=== PATIENT | male | born 1930 | race Caucasian/White ===

== ENCOUNTER → 2017-06-16 | Outpatient (CLI) | payer MEDICARE, OTHER ==
[~2017-06-16] MED LIST: ALLO100T30 PO; ASPI-496 PO; DUTA0.5C PO; NADO40TA PO; NIAC1000 PO; NIFE20CA PO; PANT40GR PO; REGADENOSON 0.4 MG/5 ML SYRINGE ONE; ROSU20TA PO
== END | disposition home or self-care (01) ==
LOC: CFH 08:14
PROVIDERS: ATTEND Internal Medicine Cardiovascular Disease
DX: I25.9 Chronic ischemic heart disease, unspecified (principal); I25.119 Atherosclerotic heart disease of native coronary artery with unspecified angina pectoris
CPT/HCPCS: 78452; 93017; A9502; J2785

== ENCOUNTER 2017-06-29 09:22 | Inpatient (IN) | payer MEDICARE, OTHER ==
[2017-06-28 11:34] VITALS: BP 119/61
[2017-06-28 11:59] LABS: HEMATOCRIT 47.7 % (39.2-51.8); HEMOGLOBIN 16.3 g/dL (13.7-18.0); WHITE BLOOD COUNT 9.4 x10^3/uL (3.4-10)
[2017-06-28 12:09] LABS: ASPARTATE AMINO TRANSFERASE 31 U/L (15-37); BLOOD UREA NITROGEN 23 mg/dL (7-18)
[~2017-06-29] VITALS: Ht 193 cm; Wt 88.5 kg
[~2017-06-29 09:22] MED LIST changes: -REGADENOSON 0.4 MG/5 ML SYRINGE ONE
[2017-06-29] MEDS ORDERED: BIVALIRUDIN 250 MG ONE (10:26)
[2017-06-29] MEDS ORDERED: VERAPAMIL 2.5 MG/ML, 2ML ONE (10:26)
[2017-06-29] MEDS ORDERED: FENTANYL PF 100 MCG/2ML ONE (10:26)
[2017-06-29] MEDS ORDERED: MIDAZOLAM 1 MG/ML, 5ML ONE (10:26)
[2017-06-29] MEDS ORDERED: LIDOCAINE 2%, 20ML ONE (10:26)
[2017-06-29] MEDS ORDERED: HEPARIN 1,000 UNITS/ML, 10ML ONE (10:26)
[2017-06-29] MEDS ORDERED: PRASUGREL 10 MG TABLET ONE (10:37)
[2017-06-29] MEDS: SODIUM CHLORIDE 0.9% 1,000 ML IV SCH ×2 (11:49→19:49)
[2017-06-29 13:22] VITALS: BP 127/57
[2017-06-29] MEDS ORDERED: SODIUM CHLORIDE 0.9% 1,000 ML IV ONE (14:24)
[2017-06-29] MEDS ORDERED: TICAGRELOR 90 MG TABLET PO ONE (15:00)
[2017-06-29 19:36] VITALS: BP 131/80
[2017-06-29] MEDS: DUTASTERIDE 0.5 MG CAPSULE PO SCH (20:13)
[2017-06-29] MEDS: TEMPLATE NON-FORMULARY MED. (CRESTOR 20 MG) PO SCH (20:13)
[2017-06-29] MEDS: TICAGRELOR 90 MG TABLET PO SCH (20:13)
[2017-06-30 01:20] VITALS: BP 122/53
[2017-06-30] MEDS: SODIUM CHLORIDE 0.9% 1,000 ML IV SCH ×3 (03:49→19:49)
[2017-06-30 05:14] LABS: ASPARTATE AMINO TRANSFERASE 24 U/L (15-37); BLOOD UREA NITROGEN 25 mg/dL (7-18)
[2017-06-30 05:15] LABS: HEMATOCRIT 45.1 % (39.2-51.8); HEMOGLOBIN 15.4 g/dL (13.7-18.0); WHITE BLOOD COUNT 11.6 x10^3/uL (3.4-10)
[2017-06-30] MEDS: ASPIRIN 81 MG TABLET EC PO SCH (06:01)
[2017-06-30 07:28] VITALS: BP 140/73
[2017-06-30] MEDS: PANTOPROZOLE 40MG TABLET PO SCH (07:36)
[2017-06-30] MEDS: niFEDipine ER 30 MG TABLET.ER PO SCH (07:36)
[2017-06-30] MEDS: TICAGRELOR 90 MG TABLET PO SCH ×2 (07:36→20:19)
[2017-06-30] MEDS: ALLOPURINOL 100 MG TABLET PO SCH (07:36)
[2017-06-30] MEDS ORDERED: PHENYLEPHRINE 10 MG/ML ONE (08:11)
[2017-06-30] MEDS ORDERED: NIACIN 500 MG TABLET.ER PO SCH (09:00)
[2017-06-30] MEDS ORDERED: DUTASTERIDE 0.5 MG CAPSULE PO SCH (09:00)
[2017-06-30] MEDS ORDERED: NADOLOL 40 MG PO SCH (09:00)
[2017-06-30 13:30] VITALS: BP 113/59
[2017-06-30 19:57] VITALS: BP 110/66
[2017-06-30] MEDS: TEMPLATE NON-FORMULARY MED. (CRESTOR 20 MG) PO SCH (20:18)
[2017-06-30] MEDS: DUTASTERIDE 0.5 MG CAPSULE PO SCH (20:19)
[2017-07-01 01:33] VITALS: BP 109/53
[2017-07-01] MEDS: SODIUM CHLORIDE 0.9% 1,000 ML IV SCH (03:49)
[2017-07-01 05:22] LABS: BLOOD UREA NITROGEN 22 mg/dL (7-18)
[2017-07-01 07:33] VITALS: BP 114/64
[2017-07-01] MEDS: PANTOPROZOLE 40MG TABLET PO SCH (08:03)
[2017-07-01] MEDS: ASPIRIN 81 MG TABLET EC PO SCH (08:03)
[2017-07-01] MEDS: TICAGRELOR 90 MG TABLET PO SCH (08:03)
[2017-07-01] MEDS: ALLOPURINOL 100 MG TABLET PO SCH (08:03)
[2017-07-01] MEDS: niFEDipine ER 30 MG TABLET.ER PO SCH (08:03)
[2017-07-01] MEDS ORDERED: ALLOPURINOL 100 MG TABLET PO SCH (09:00)
[2017-07-01] MEDS ORDERED: TICA90TA PO (09:56)
== END 2017-07-01 12:20 | disposition home or self-care (01) | DRG 247 ==
LOC: CACL 09:22 → ORIP 11:49 → CACL 11:49 → 5SO 12:03 → DCLOUNGE 07-01 11:49
PROVIDERS: ADMIT Internal Medicine Cardiovascular Disease; ATTEND Internal Medicine Cardiovascular Disease
PROC: 4A023N7 Measurement of Cardiac Sampling and Pressure, Left Heart, Percutaneous Approach (ICD-10-PCS; 2017-06-29)
PROC: B2111ZZ Fluoroscopy of Multiple Coronary Arteries using Low Osmolar Contrast (ICD-10-PCS; 2017-06-29)
PROC: B2151ZZ Fluoroscopy of Left Heart using Low Osmolar Contrast (ICD-10-PCS; 2017-06-29)
PROC: B240ZZ3 Ultrasonography of Single Coronary Artery, Intravascular (ICD-10-PCS; principal; 2017-06-30)
PROC: 027034Z Dilation of Coronary Artery, One Artery with Drug-eluting Intraluminal Device, Percutaneous Approach (ICD-10-PCS; 2017-06-30)
DX: I25.110 Atherosclerotic heart disease of native coronary artery with unstable angina pectoris (principal); I34.0 Nonrheumatic mitral (valve) insufficiency; I10 Essential (primary) hypertension; E78.5 Hyperlipidemia, unspecified; M10.9 Gout, unspecified; Z87.891 Personal history of nicotine dependence; Z82.49 Family history of ischemic heart disease and other diseases of the circulatory system
CPT/HCPCS: 36415; 80048; 80053; 82040; 84425; 84443; 85025; 92978; 92979; 93005; 93454; 93458; 99156; 99157; C1753; C1760; C1769; C1894; C9600; C9601; J0583; J1644; J2250; J3010; J3490; C1725; C1874; C1887; J2370; Q9967

== ENCOUNTER → 2017-11-04 | Outpatient (CLI) | payer MEDICARE, OTHER ==
[~2017-11-04] MED LIST changes: +TICA90TA PO
== END | disposition home or self-care (01) ==
LOC: CVU 15:40
PROVIDERS: ATTEND Internal Medicine
DX: R20.2 Paresthesia of skin (principal); M79.604 Pain in right leg; M79.605 Pain in left leg; I10 Essential (primary) hypertension; I25.10 Atherosclerotic heart disease of native coronary artery without angina pectoris; I25.2 Old myocardial infarction; Z95.5 Presence of coronary angioplasty implant and graft
CPT/HCPCS: 93922

== ENCOUNTER 2018-02-10 10:57 | Emergency (ER) | payer MEDICARE, OTHER ==
[~2018-02-10] VITALS: Ht 193 cm; Wt 93.8 kg
[2018-02-10 11:30] LABS: BASOPHILS # (AUTO) 0.01 x10^3/uL (0-0.1); BASOPHILS % (AUTO) 0 % (0-1); EOSINOPHILS # (AUTO) 0.31 x10^3/uL (0-0.4); EOSINOPHILS % (AUTO) 4 % (1-7); LYMPHOCYTES # (AUTO) 1.16 x10^3/uL (1-3.4); LYMPHOCYTES % (AUTO) 14 % (22-44); MD NO; MEAN CORPUSCULAR HEMOGLOBIN 35.6 pg (27.5-34.5); MEAN CORPUSCULAR VOLUME 104.6 fL (81-97); MEAN PLATELET VOLUME 7.5 fL (7.4-10.4); MONOCYTES # (AUTO) 0.79 x10^3/uL (0.2-0.8); MONOCYTES % (AUTO) 10 % (2-9); NEUTROPHILS # (AUTO) 5.92 x10^3/uL (1.8-6.8); NEUTROPHILS % (AUTO) 72 % (42-75); PLATELET COUNT 146 x10^3/uL (130-400); RED BLOOD COUNT 3.94 x10^6/uL (4.38-5.82); RED CELL DISTRIBUTION WIDTH 14.5 % (9.4-14.8)
[2018-02-10] MEDS ORDERED: SODIUM CHLORIDE 0.9%, 250ML IVBOLUS ONE (11:30)
[2018-02-10] MEDS ORDERED: SODIUM CHLORIDE FLUSH 10ML SYR IVF ONE (11:30)
[2018-02-10 11:39] LABS: INTERNATIONAL NORMALIZED RATIO 1.09 (0.93-1.1); PROTHROMBIN TIME 11.3 Seconds (9.6-11.5)
[2018-02-10 11:43] LABS: ALANINE AMINOTRANSFERASE 28 U/L (12-78); ALBUMIN 3.8 g/dL (3.4-5.0); ANION GAP 4 mmol/L (5-15); CALCIUM 8.5 mg/dL (8.5-10.1); CHLORIDE 109 mmol/L (98-107); CREATININE 1.31 mg/dL (0.7-1.3)
[2018-02-10 11:53] LABS: ALKALINE PHOSPHATASE 42 U/L (45-117); T4 (THYROXINE) 8.8 mcg/dL (4.5-12.1); TOTAL PROTEIN 7.3 g/dL (6.4-8.2)
[2018-02-10 11:55] VITALS: BP 116/69
== END 2018-02-10 12:59 | disposition home or self-care (01) ==
LOC: ED 12:57
DX: I49.3 Ventricular premature depolarization (principal); R00.1 Bradycardia, unspecified; I95.2 Hypotension due to drugs; I44.0 Atrioventricular block, first degree; I25.10 Atherosclerotic heart disease of native coronary artery without angina pectoris; E78.00 Pure hypercholesterolemia, unspecified; R79.1 Abnormal coagulation profile
CPT/HCPCS: 36415; 71045; 80053; 83735; 83880; 84436; 84443; 84484; 85025; 85610; 85730; 93005; 99285; J7050